=== PATIENT | female | born 1960 | race Caucasian/White ===

== ENCOUNTER 2020-08-30 15:01 | Inpatient (IN) ==
[2020-08-30] MEDS ORDERED: 0.9 % Sodium Chloride 1,000 ML IVC ONE (15:03)
[2020-08-30 15:20] LABS: Bilirubin,Urine Negative (Negative); Blood,Urine Trace-intact (Negative); Clarity,Urine Slightly Cloudy (Clear); Color,Urine Yellow (Yellow); Glucose,Urine (UA) Normal (Normal); Ketones,Urine Negative (Negative); Leukocyte Esterase,Urine Negative (Negative); Nitrite,Urine Negative (Negative); Protein,Urine 30 mg/dL (Neg-Trace); Specific Gravity,Urine >= 1.030 (1.010-1.025); Urobilinogen,Urine Normal (Normal)
[2020-08-30 15:26] LABS: ABG Base Excess -2 mEq/L (-2 to 3); ABG HCO3 23 mEq/L (21-27); ABG Oxygen Saturation 94 % (95-98); ABG PCO2 39 mmHg (35-45); ABG PH 7.39 pH Units (7.32-7.45); ABG PO2 70 mmHg (85-104); ABG TCO2 24 mEq/L (20-26)
[2020-08-30 15:29] LABS: Amorphous Sediment,Urine Few per hpf (None-Few); Mucus,Urine Many per lpf (None-Few); Squamous Epithelial Cell,Urine Few per hpf (None-Few); WBC,Urine 0-3 per hpf (0-3)
[2020-08-30 15:59] LABS: Basophils % 0.1 %; Eosinophils % 0.2 %; Immature Granulocytes % 0.6 % (0-4); Lymphocytes % 11.8 %; Mean Corpuscular HGB Conc 29.2 g/dL (31.6-35.5); Mean Corpuscular Hemoglobin 19.7 pg (28.0-33.3); Mean Corpuscular Volume 67.4 fL (83.0-100.0); Mean Platelet Volume 8.7 fL (9.4-12.4); Monocytes # 0.5 K/mcL (0.0-1.3); Platelet Count 363 K/mcL (140-400); Red Blood Count 3.56 M/mcL (3.82-4.97); Red Cell Distribution Width 18.8 % (11.5-14.5); Segmented Neutrophils % 81.3 %; White Blood Count 8.7 K/mcL (4.3-11.1)
[2020-08-30 16:18] LABS: Troponin I < 0.03 ng/mL (< 0.04)
[2020-08-30 16:19] LABS: Alanine Aminotransferase 12 Units/L (7-52); Albumin 3.5 g/dL (3.5-5.7); Albumin/Globulin Ratio 1.2 (1.1-2.2); Alkaline Phosphatase 85 Units/L (34-104); Aspartate Amino Transferase 19 Units/L (13-39); BUN/Creatinine Ratio 10 (6-26); Bilirubin,Total 0.3 mg/dL (0.3-1.0); Blood Urea Nitrogen 11 mg/dL (8-23); Calcium 8.3 mg/dL (8.6-10.3); Carbon Dioxide 26 mEq/L (23-29); Chloride 105 mEq/L (98-107); Globulin 2.9 g/dL (2.4-3.5); Glucose 115 mg/dL (70-105); Osmolality,Calculated 286 (280-300); Potassium 3.4 mEq/L (3.5-5.1); Sodium 138 mEq/L (136-145); Total Protein 6.4 g/dL (6.4-8.9); eGFR For African Americans 58 (> 60); eGFR For Non-African Americans 48 (> 60)
[2020-08-30 16:31] LABS: Thyroid Stimulating Hormone 0.823 mcIU/mL (0.340-5.600)
[2020-08-30 16:46] LABS: Anisocytosis 1+ (Not Present); Hypochromasia Present (Not Present); Microcytosis Present (Not Present)
[2020-08-30 16:47] LABS: Platelet Estimate Normal (Normal)
[2020-08-30] MEDS ORDERED: Acetaminophen 325 MG TABLET PO PRN (17:52)
[2020-08-30] MEDS ORDERED: MOM Conc 10 ML UD.LIQ PO PRN (17:52)
[2020-08-30] MEDS ORDERED: Naloxone 0.4 MG/ML INJ IVP PRN (17:52)
[2020-08-30] MEDS ORDERED: Mag Hydrox/Al Hydrox/Simeth 30 ML UDC PO PRN (17:52)
[2020-08-30] MEDS ORDERED: Ondansetron 4 MG/2 ML VIAL IVP PRN (17:52)
[2020-08-30] MEDS ORDERED: 0.9 % Sodium Chloride 250 ML IVC SCH (18:15)
[2020-08-30 21:19] LABS: C-Reactive Protein 140 mg/L (Less than 10)
[2020-08-30 21:38] LABS: Ferritin 22 ng/mL (10-120)
[2020-08-31] MEDS: lamoTRIgine 100 MG TABLET PO SCH ×3 (01:00→21:29)
[2020-08-31] MEDS: Primidone 50 MG TABLET PO SCH ×3 (01:00→23:38)
[2020-08-31] MEDS: QUEtiapine Fumarate 100 MG TABLET PO SCH ×3 (01:01→21:29)
[2020-08-31] MEDS: haloperidoL 1 MG TABLET PO SCH ×3 (01:02→21:29)
[2020-08-31] MEDS ORDERED: 0.9 % Sodium Chloride 250 ML ONE (04:41)
[2020-08-31] MEDS ORDERED: Isovue-370 500 ML BOTTLE IVP ONE (07:49)
[2020-08-31] MEDS: levETIRAcetam 250 MG TABLET PO SCH (08:58)
[2020-08-31 09:33] LABS: Iron < 10 mcg/dL (50-170); Transferrin 260 mg/dL (203-362)
[2020-08-31 09:44] LABS: Folate > 22.3 ng/mL (3.0-16.0); Vitamin B12 400 pg/mL (250-1100)
[2020-08-31 10:02] LABS: Basophils % 0.2 %; Eosinophils # 0.1 K/mcL (0.0-0.6); Eosinophils % 0.6 %; Hemoglobin 9.3 g/dL (11.5-15.4); Immature Granulocytes % 2.2 % (0-4); Lymphocytes # 1.2 K/mcL (0.6-4.6); Lymphocytes % 14.4 %; Mean Corpuscular Hemoglobin 22.3 pg (28.0-33.3); Mean Corpuscular Volume 74.3 fL (83.0-100.0); Mean Platelet Volume 9.1 fL (9.4-12.4); Monocytes # 0.6 K/mcL (0.0-1.3); Monocytes % 7.2 %; Neutrophils # 6.1 K/mcL (1.6-8.9); Platelet Count 328 K/mcL (140-400); Red Blood Count 4.17 M/mcL (3.82-4.97); Red Cell Distribution Width 22.1 % (11.5-14.5); Segmented Neutrophils % 75.4 %; White Blood Count 8.1 K/mcL (4.3-11.1)
[2020-08-31 10:22] LABS: BUN/Creatinine Ratio 8 (6-26); Blood Urea Nitrogen 7 mg/dL (8-23); Calcium 7.7 mg/dL (8.6-10.3); Carbon Dioxide 21 mEq/L (23-29); Chloride 109 mEq/L (98-107); Glucose 103 mg/dL (70-105); Osmolality,Calculated 286 (280-300); Potassium 3.7 mEq/L (3.5-5.1); Sodium 139 mEq/L (136-145); eGFR For African Americans > 60 (> 60); eGFR For Non-African Americans > 60 (> 60)
[2020-08-31] MEDS ORDERED: Iron Sucrose Complex 400 MG in 0.9 % Sodium Chloride 250 ML IVPB ONE (10:41)
[2020-08-31 10:51] LABS: Anisocytosis 2+ (Not Present); Platelet Estimate Normal (Normal)
[2020-08-31 10:52] LABS: Hypochromasia Present (Not Present); Microcytosis Present (Not Present); Polychromasia 1+ (Not Present)
[2020-08-31] MEDS ORDERED: *HR* LORazepam 2 MG/ML VIAL IVP PRN (12:38)
[2020-08-31] MEDS ORDERED: *HR* LORazepam 2 MG/ML VIAL ONE (12:39)
[2020-09-01] MEDS: *HR* LORazepam 2 MG/ML VIAL IVP PRN ×3 (05:27→17:24)
[2020-09-01 06:54] LABS: Hematocrit 33.2 % (35.3-44.9); Hemoglobin 10.1 g/dL (11.5-15.4); Mean Corpuscular HGB Conc 30.4 g/dL (31.6-35.5); Mean Corpuscular Hemoglobin 22.2 pg (28.0-33.3); Mean Platelet Volume 8.6 fL (9.4-12.4); Platelet Count 355 K/mcL (140-400); Red Blood Count 4.55 M/mcL (3.82-4.97); Red Cell Distribution Width 21.9 % (11.5-14.5); White Blood Count 6.7 K/mcL (4.3-11.1)
[2020-09-01 07:16] LABS: BUN/Creatinine Ratio 8 (6-26); Blood Urea Nitrogen 7 mg/dL (8-23); Calcium 8.3 mg/dL (8.6-10.3); Carbon Dioxide 26 mEq/L (23-29); Chloride 110 mEq/L (98-107); Glucose 100 mg/dL (70-105); Osmolality,Calculated 294 (280-300); Potassium 3.7 mEq/L (3.5-5.1); Sodium 143 mEq/L (136-145); eGFR For African Americans > 60 (> 60); eGFR For Non-African Americans > 60 (> 60)
[2020-09-01] MEDS: QUEtiapine Fumarate 100 MG TABLET PO SCH ×2 (09:42→20:34)
[2020-09-01] MEDS: lamoTRIgine 100 MG TABLET PO SCH ×2 (09:43→20:34)
[2020-09-01] MEDS: levETIRAcetam 250 MG TABLET PO SCH (09:43)
[2020-09-01] MEDS: haloperidoL 1 MG TABLET PO SCH ×2 (09:43→20:34)
[2020-09-01] MEDS: Cyanocobalamin (B-12) 1,000 MCG TABLET PO SCH (09:43)
[2020-09-01] MEDS: Primidone 50 MG TABLET PO SCH ×2 (09:43→20:36)
[2020-09-01] MEDS: Doxycycline 100 MG in 0.9 % Sodium Chloride Mini Bag 100 ML IVPB SCH (13:43)
[2020-09-02] MEDS: Doxycycline 100 MG in 0.9 % Sodium Chloride Mini Bag 100 ML IVPB SCH (04:01)
[2020-09-02 07:50] LABS: Basophils # 0.1 K/mcL (0.0-0.2); Basophils % 0.7 %; Eosinophils # 0.2 K/mcL (0.0-0.6); Hematocrit 33.7 % (35.3-44.9); Hemoglobin 9.9 g/dL (11.5-15.4); Immature Granulocytes % 2.3 % (0-4); Lymphocytes % 22.3 %; Mean Corpuscular HGB Conc 29.4 g/dL (31.6-35.5); Mean Corpuscular Hemoglobin 21.6 pg (28.0-33.3); Mean Corpuscular Volume 73.4 fL (83.0-100.0); Mean Platelet Volume 8.5 fL (9.4-12.4); Monocytes # 0.8 K/mcL (0.0-1.3); Monocytes % 8.7 %; Neutrophils # 5.8 K/mcL (1.6-8.9); Platelet Count 390 K/mcL (140-400); Red Blood Count 4.59 M/mcL (3.82-4.97); Red Cell Distribution Width 22.5 % (11.5-14.5)
[2020-09-02] MEDS ORDERED: Doxycycline 100 MG CAPSULE PO SCH ×2 (08:00→09:00)
[2020-09-02 08:17] VITALS: BP 147/70
[2020-09-02 08:17] LABS: BUN/Creatinine Ratio 8 (6-26); Blood Urea Nitrogen 7 mg/dL (8-23); Calcium 8.6 mg/dL (8.6-10.3); Carbon Dioxide 26 mEq/L (23-29); Chloride 109 mEq/L (98-107); Glucose 81 mg/dL (70-105); Osmolality,Calculated 293 (280-300); Potassium 3.5 mEq/L (3.5-5.1); Sodium 143 mEq/L (136-145); eGFR For African Americans > 60 (> 60); eGFR For Non-African Americans > 60 (> 60)
[2020-09-02] MEDS: levETIRAcetam 250 MG TABLET PO SCH (09:11)
[2020-09-02] MEDS: lamoTRIgine 100 MG TABLET PO SCH (09:15)
[2020-09-02] MEDS: Cyanocobalamin (B-12) 1,000 MCG TABLET PO SCH (09:16)
[2020-09-02] MEDS: QUEtiapine Fumarate 100 MG TABLET PO SCH (09:16)
[2020-09-02] MEDS: haloperidoL 1 MG TABLET PO SCH (09:18)
[2020-09-02] MEDS: Primidone 50 MG TABLET PO SCH (09:27)
[2020-09-02] MEDS: *HR* LORazepam 2 MG/ML VIAL IVP PRN (15:55)
== END 2020-09-02 19:30 | disposition short-term general hospital (02) | DRG 137 ==
LOC: INPPIK 15:01 → EMEROOPIK 15:01 → INPPIK 19:36
PROVIDERS: ADMIT Family Medicine; ATTEND Family Medicine